=== PATIENT | female | born 1995 ===

== ENCOUNTER 2018-03-25 17:03 | Emergency (ER) | payer MEDICAID, OTHER ==
[2018-03-25 17:12] VITALS: O2SAT 99; BMI 41.1
--- NOTE | 2018-03-25 17:30 | ED PDOC ---
Arrival/HPI - General Chief Complaint: Weakness/Neurological Deficit Time Seen by Provider: 03/25/18 17:23 - History of Present Illness Narrative History of Present Illness (Text): 22 y/o F c no PMHx p/w hearing loss x 6 days and nausea after intercourse x 1 week. Patient states can not hear from R ear but denies fever, swelling, pain, or discharge. She notes that she has been digging in the ear to clean it herself and caused pain. She also notes nausea after intercourse but denies vaginal discharge, pelvic or abdominal pain, vomiting. Sexually active with 1 male partner for 1 week. Past Medical History - Infectious Disease Hx of Infectious Diseases: None - Psychiatric Hx Substance Use: Yes (marijuana) Family/Social History Family/Social History: No Known Family HX Smoking Status: Current Some Days Smoker Hx Alcohol Use: Yes Frequency of alcohol use: Socially Hx Substance Use: Yes (marijuana) Allergies/Home Meds Allergies/Adverse Reactions: Allergies amoxicillin Allergy (Verified 03/25/18 17:20) ANAPHYLAXIS FISH Allergy (Verified 03/25/18 17:20) ANAPHYLAXIS Fish Containing Products Allergy (Verified 03/25/18 17:20) ANAPHYLAXIS penicillin G Allergy (Verified 03/25/18 17:20) ANAPHYLAXIS Review of Systems - Physician Review All systems were reviewed & negative as marked: Yes - Review of Systems Constitutional: absent: Fevers Respiratory: absent: SOB Physical Exam - Physical Exam Narrative Physical Exam (Text): Gen: NAD Head: NC Eyes: PERRL ENT: R Tm with cerumen impaction Neck: Supple CV: Regular rate Lungs: CTA b/l Abd: Soft, NT Back: No CVA tenderness Skin: No rash Extremities: No swelling Neuro: Alert, no focal deficit Vital Signs Temp Pulse Resp BP Pulse Ox 03/25/18 17:12 98.4 F 77 18 130/88 99 Medical Decision Making ED Course and Treatment: Cerumen removed with light irrigation with resolution of symptoms. On re- examination, TM had been perforated, likely due to patient's inflicted trauma when attempting to clean at home. UA checked for UTI, , and GC/Chlamydia. Will treat with Azithromycin 2g due to reported allergy. Dr. Roque agrees with cipro drops and follow up in ENT office tomorrow. - Lab Interpretations Lab Results: Lab Results 03/25/18 17:42: Urine Color Yellow, Urine Appearance Clear, Urine pH 6.0, Ur Specific [place] 1.025, Urine Protein Trace H, Urine Glucose (UA) Negative, Urine Ketones Trace H, Urine Blood Negative, Urine Nitrate Negative, Urine Bilirubin Negative, Urine Urobilinogen 0.2, Ur Leukocyte Esterase Negative, Urine RBC Negative, Urine WBC 2 - 5, Ur Epithelial Cells 4 - 5, Calcium Oxalate Crystal Mod, Urine Bacteria Few, Urine HCG, Qual Negative - Medication Orders Current Medication Orders: Discontinued Medications Ciprofloxacin (Ciloxan 0.3% Ophth Soln) 1 drop AD STAT STA Stop: 03/25/18 17:58 Disposition/Present on Arrival - Present on Arrival Any Indicators Present on Arrival: No History of DVT/PE: No History of Uncontrolled Diabetes: No Urinary Catheter: No History of Decub. Ulcer: No History Surgical Site Infection Following: None - Disposition Have Diagnosis and Disposition been Completed?: Yes Diagnosis: Cerumen impaction, Rupture of tympanic membrane Disposition Time: 18:54 Patient Plan: Discharge Patient Problems: Current Active Problems Problem Status Onset Cerumen impaction Acute Rupture of tympanic membrane Acute Condition: STABLE Discharge Instructions (ExitCare): Ear Wax Impaction, Ruptured Eardrum (DC) Prescriptions: Ciprofloxacin/Hydrocortisone [Cipro Hc Otic Suspension] 1 drop AD Q12H #10 ml Referrals: Paulo Burnham DO [Staff Provider] - Follow up with primary Forms: [employer] ([place])
[2018-03-25] MEDS ORDERED: Ciprofloxacin 0.3% OPTH SOLN AD STA (17:57)
[2018-03-25 18:36] LABS: URINE BILIRUBIN NEGATIVE (NEGATIVE); URINE BLOOD NEGATIVE (NEGATIVE); URINE GLUCOSE (UA) NEGATIVE (NEGATIVE); URINE LEUKOCYTE ESTERASE NEGATIVE Leu/uL (NEGATIVE); URINE PROTEIN TRACE mg/dL (<30 mg/dL); URINE UROBILINOGEN 0.2 E.U./dL (<1 E.U./dL)
[2018-03-25 18:38] LABS: URINE APPEARANCE CLEAR (CLEAR); URINE COLOR YELLOW (YELLOW)
[2018-03-25 18:39] LABS: URINE BACTERIA FEW (NEG); URINE CALCIUM OXALATE CRYSTALS MOD /hpf; URINE RBC NEGATIVE /hpf (0-2)
[2018-03-25 18:40] LABS: HCG,QUALITATIVE URINE NEGATIVE (NEGATIVE)
[2018-03-25 19:37] VITALS: BP 130/80; PULSE 70; RESP 19; TEMP 98
== END 2018-03-25 19:30 | disposition home or self-care (01) ==
LOC: ED 17:03
DX: H72.91 Unspecified perforation of tympanic membrane, right ear (principal); H61.21 Impacted cerumen, right ear; F17.200 Nicotine dependence, unspecified, uncomplicated

== ENCOUNTER 2018-05-02 15:42 | Emergency (ER) | payer MEDICAID ==
[2018-05-02 15:42] VITALS: BMI 41.1
== END 2018-05-02 17:05 | disposition left against medical advice (07) ==
LOC: ED 15:42
DX: Z02.89 Encounter for other administrative examinations (principal); R21 Rash and other nonspecific skin eruption

== ENCOUNTER 2018-07-21 15:35 | Emergency (ER) | payer OTHER, MEDICAID ==
[2018-07-21 15:35] VITALS: BMI 41.1
[2018-07-21 16:06] VITALS: RESP 18; TEMP 98.3; O2SAT 98
--- NOTE | 2018-07-21 16:10 | ED PDOC ---
Arrival/HPI - General Time Seen by Provider: 07/21/18 16:05 Historian: Patient - History of Present Illness Narrative History of Present Illness (Text): 07/21/18 16:05 23 y/o female, no significant pmh, penicillin allergy, c/o lt. foot x 3 hours. Pt. stated that shopping cart accidentally run over her 4th and 5th toe, has pain, able to move it, able to bear weight, had shoe and sock on, no numbness or tingling, no skin discoloration, no rash, no night sweat, no other medical or psychological complaints. Past Medical History - Provider Review Nursing Documentation Reviewed: Yes - Infectious Disease Hx of Infectious Diseases: None - Psychiatric Hx Substance Use: Yes (marijuana) Family/Social History - Physician Review Nursing Documentation Reviewed: Yes Family/Social History: Unknown Family HX Smoking Status: Current Some Days Smoker Hx Alcohol Use: Yes Hx Substance Use: Yes (marijuana) Allergies/Home Meds Allergies/Adverse Reactions: Allergies amoxicillin Allergy (Verified 03/25/18 17:20) ANAPHYLAXIS FISH Allergy (Verified 03/25/18 17:20) ANAPHYLAXIS Fish Containing Products Allergy (Verified 03/25/18 17:20) ANAPHYLAXIS penicillin G Allergy (Verified 03/25/18 17:20) ANAPHYLAXIS Review of Systems - Review of Systems Constitutional: absent: Fatigue, Fevers Eyes: absent: Vision Changes ENT: absent: Hearing Changes Respiratory: absent: SOB, Cough Cardiovascular: absent: Chest Pain Gastrointestinal: absent: Abdominal Pain, Nausea, Vomiting Musculoskeletal: Arthralgias. absent: Back Pain Skin: absent: Rash, Pruritis, Skin Lesions Neurological: absent: Headache, Dizziness Endocrine: absent: Diaphoresis Hemo/Lymphatic: absent: Adenopathy Psychiatric: absent: Anxiety, Depression, Suicidal Ideation Physical Exam Vital Signs Reviewed: Yes Vital Signs Temp Pulse Resp BP Pulse Ox 07/21/18 16:03 98.3 F 82 18 119/74 98 Temperature: Afebrile Blood Pressure: Normal Pulse: Regular Respiratory Rate: Normal Appearance: Positive for: Well-Appearing, Non-Toxic, Comfortable Pain Distress: Mild Mental Status: Positive for: Alert and Oriented X 3 - Systems Exam Head: Present: Atraumatic, Normocephalic Pupils: Present: PERRL Extroacular Muscles: Present: EOMI Conjunctiva: Present: Normal Mouth: Present: Moist Mucous Membranes Neck: Present: Normal Range of Motion Respiratory/Chest: Present: Clear to Auscultation, Good Air Exchange. No: Respiratory Distress, Accessory Muscle Use Cardiovascular: Present: Regular Rate and Rhythm, Normal S1, S2. No: Murmurs Abdomen: No: Tenderness, Distention, Peritoneal Signs Back: Present: Normal Inspection Upper Extremity: Present: Normal Inspection. No: Cyanosis, Edema Lower Extremity: Present: Normal Inspection, Other (Lt. foot: mild +ttp on the 4th and 5th toe region, skin intact, no laceration or abrasion, no nail injury and no subungal hematoma, FROM without limitation, sensation intact, motor 5/5, +DPPT pulses, no signs of compartment syndrome. ). No: Edema Neurological: Present: GCS=15, CN II-XII Intact, Speech Normal Skin: Present: Warm, Dry, Normal Color. No: Rashes Psychiatric: Present: Alert, Oriented x 3, Normal Insight, Normal Concentration Medical Decision Making ED Course and Treatment: 07/21/18 16:13 -urine hcg -xray -tylenol 07/21/18 17:59 -Urine hcg is negative -Lt. foot xray show No demonstrated fracture or dislocation. -Pt. feels well, refused crutches/cane -Discharge home with naproxen, follow up with your own pmd and pulverizer feeder within 2 days, return to the ER for any new or worsening signs or symptoms. - RAD Interpretation Radiology Orders: 07/21/18 16:10 FOOT LEFT 3 VIEWS ROUTINE [RAD] Stat PROCEDURE: Left Foot Radiographs. HISTORY: lt. foot 4th and 5th toe injury, c/o pain COMPARISON: None. FINDINGS: BONES: No acute fracture. JOINTS: Normal. SOFT TISSUES: Normal. OTHER FINDINGS: None. IMPRESSION: No demonstrated fracture or dislocation. Teletype Mechanic: Radiologist - Medication Orders Current Medication Orders: Discontinued Medications Acetaminophen (Tylenol 325mg Tab) 650 mg PO STAT STA Stop: 07/21/18 16:11 Last Admin: 07/21/18 16:28 Dose: 650 mg MAR Pain/Vitals Document 07/21/18 16:28 GMD (Rec: 07/21/18 16:29 GMD [id number]) Pain Reassessment Is This A Pain ReAssessment? No Presence of Pain Presence of Pain Yes - PA / PROFESSOR OF MANAGEMENT / Resident Statement MD/DO has reviewed & agrees with the documentation as recorded. Disposition/Present on Arrival - Present on Arrival Any Indicators Present on Arrival: No History of DVT/PE: No History of Uncontrolled Diabetes: No Urinary Catheter: No History of Decub. Ulcer: No History Surgical Site Infection Following: None - Disposition Have Diagnosis and Disposition been Completed?: Yes Diagnosis: Toe injury, Toe pain Disposition: HOME/ ROUTINE Disposition Time: 16:14 Patient Plan: Discharge Patient Problems: Current Active Problems Problem Status Onset Toe injury Acute Condition: GOOD Additional Instructions: -Discharge home with naproxen, follow up with your own pmd and pulverizer feeder within 2 days, return to the ER for any new or worsening signs or symptoms. Prescriptions: Naproxen 500 mg PO BID PRN #20 tablet PRN Reason: Other Referrals: PCP,NO [Primary Care Provider] - Follow up with primary James Larkin DPM [Staff Provider] - Follow up with primary Forms: WORK NOTE
--- NOTE | 2018-07-21 17:48 | RAD ---
Date of service: 07/21/2018 PROCEDURE: Left Foot Radiographs. HISTORY: lt. foot 4th and 5th toe injury, c/o pain COMPARISON: None. FINDINGS: BONES: No acute fracture. JOINTS: Normal. SOFT TISSUES: Normal. OTHER FINDINGS: None. IMPRESSION: No demonstrated fracture or dislocation.
[2018-07-21 18:24] VITALS: BP 124/76; PULSE 76
== END 2018-07-21 18:24 | disposition home or self-care (01) ==
LOC: ED 15:35
DX: M79.675 Pain in left toe(s) (principal); S99.922A Unspecified injury of left foot, initial encounter; W22.8XXA Striking against or struck by other objects, initial encounter

== ENCOUNTER 2018-09-15 15:07 | Inpatient (IN) | payer MEDICAID, OTHER ==
[2018-09-15 15:47] VITALS: BMI 42.0
--- NOTE | 2018-09-15 16:09 | ED PDOC ---
Arrival/HPI - General Historian: Patient - History of Present Illness Narrative History of Present Illness (Text): 09/15/18 16:06 23 year old female, with past medical history of chronic depression, presents to the Emergency Department for psychiatric evaluation of depressed mood since past few weeks. Patient states feeling depressed secondary to job and family issues. Patient denies any somatic complaints. Patient denies any suicidal ideation or homicidal ideation. Patient denies any visual or auditory hallucinations. Patient denies any alcohol or drug abuse. Time/Duration: > week Symptom Onset: Gradual Symptom Course: Unchanged Activities at Onset: Light Context: Home <Darrion Escobar - Last Filed: 09/15/18 18:46> <Beverley Gomez - Last Filed: 09/19/18 17:04> - General Chief Complaint: Psychiatric Evaluation Time Seen by Provider: 09/15/18 15:33 Past Medical History - Provider Review Nursing Documentation Reviewed: Yes - Infectious Disease Hx of Infectious Diseases: None - Psychiatric Hx Substance Use: Yes (marijuana) - Anesthesia Hx Anesthesia: No <Darrion Escobar - Last Filed: 09/15/18 18:46> Family/Social History - Physician Review Nursing Documentation Reviewed: Yes Family/Social History: No Known Family HX Smoking Status: Marijuana Hx Alcohol Use: Yes Frequency of alcohol use: Socially Hx Substance Use: Yes (marijuana) <Darrion Escobar - Last Filed: 09/15/18 18:46> Allergies/Home Meds <Darrion Escobar - Last Filed: 09/15/18 18:46> <Beverley Gomez - Last Filed: 09/19/18 17:04> Allergies/Adverse Reactions: Allergies amoxicillin Allergy (Verified 09/15/18 21:07) ANAPHYLAXIS FISH Allergy (Verified 09/15/18 21:07) ANAPHYLAXIS Fish Containing Products Allergy (Verified 09/15/18 21:07) ANAPHYLAXIS penicillin G Allergy (Verified 09/15/18 21:07) ANAPHYLAXIS Home Medications: Home Meds Medication Instructions Recorded Confirmed RX: No Known Home Med 09/15/18 09/15/18 Review of Systems - Physician Review All systems were reviewed & negative as marked: Yes - Review of Systems Constitutional: absent: Fatigue, Fevers Respiratory: absent: SOB, Cough Cardiovascular: absent: Chest Pain Gastrointestinal: absent: Abdominal Pain, Diarrhea, Nausea, Vomiting Genitourinary Female: absent: Hematuria Musculoskeletal: absent: Back Pain, Neck Pain Skin: absent: Rash Neurological: absent: Headache, Dizziness Psychiatric: Depression. absent: Anxiety, Suicidal Ideation <Darrion Escobar - Last Filed: 09/15/18 18:46> Physical Exam Vital Signs Reviewed: Yes Vital Signs Temp Pulse Resp BP Pulse Ox 09/15/18 15:38 98.2 F 94 H 17 108/72 97 Temperature: Afebrile Blood Pressure: Normal Pulse: Regular Respiratory Rate: Normal Appearance: Positive for: Well-Appearing, Non-Toxic, Comfortable Pain Distress: None Mental Status: Positive for: Alert and Oriented X 3 - Systems Exam Head: Present: Atraumatic, Normocephalic Pupils: Present: PERRL Extroacular Muscles: Present: EOMI Conjunctiva: Present: Normal Mouth: Present: Moist Mucous Membranes Neck: Present: Normal Range of Motion Respiratory/Chest: Present: Clear to Auscultation, Good Air Exchange. No: Respiratory Distress, Accessory Muscle Use Cardiovascular: Present: Regular Rate and Rhythm, Normal S1, S2. No: Murmurs Abdomen: No: Tenderness, Distention, Peritoneal Signs Back: Present: Normal Inspection Upper Extremity: Present: Normal Inspection. No: Cyanosis, Edema Lower Extremity: Present: Normal Inspection. No: Edema Neurological: Present: GCS=15, CN II-XII Intact, Speech Normal, Motor Func Grossly Intact, Gait Normal, Memory Normal Skin: Present: Warm, Dry, Normal Color. No: Rashes Lymphatic: No: Cervical Adenopathy Psychiatric: Present: Alert, Oriented x 3, Normal Insight, Normal Concentration, Depressed Mood. No: Suicidal Ideation, Homicidal Ideation <Darrion Escobar - Last Filed: 09/15/18 18:46> Vital Signs Temp Pulse Resp BP Pulse Ox 09/15/18 17:00 98.3 F 75 16 122/75 98 09/15/18 15:38 98.2 F 94 H 17 108/72 97 <Beverley Gomez - Last Filed: 09/19/18 17:04> Medical Decision Making ED Course and Treatment: 09/15/18 16:11 Impression: 23 year old female presents to the Emergency Department for psychiatric evaluation of depression. Plan: -- Labs -- Chest X-ray -- EKG -- PES -- Reassess and disposition 09/15/18 17:19 -Urine hcg is negative -Labs show no acute findings -UA show mild UTI, macrobid ordered -UDS is positive for cannabinoid -Alcohol within normal limit. -salicylate/acetaminophen within normal limit -Chest xray show No active pulmonary disease. -Pt. is medically clear and stable for the psychiatric evaluation. -Pending PES for evaluation 09/15/18 18:46 -Pt. evaluated by the YISSEL Iniguez, evaluated the patient and discussed with the psychiatrist, recommend admission and the patient agreed. -All labs and radiology results discussed with the patient, she awared. -Pt. will be admitted under Dr. Amanda Murillo, for bipolar disorder as per YISSEL Iniguez. - RAD Interpretation Radiology Orders: 09/15/18 15:42 CHEST PORTABLE [RAD] Stat 09/15/2018 HISTORY: medical clearance COMPARISON: No prior. FINDINGS: LUNGS: The lungs are well inflated and clear. PLEURA: No pleural effusions or pneumothorax. CARDIOVASCULAR: The heart is normal in size. No aortic atherosclerotic calcification present. OSSEOUS STRUCTURES: Within normal limits for the patient's age. VISUALIZED UPPER ABDOMEN: Normal. OTHER FINDINGS: None. IMPRESSION: No active pulmonary disease. Awning Craftsperson: Radiologist <Darrion Escobar - Last Filed: 09/15/18 18:46> - Lab Interpretations Microbiology Results: Microbiology Results 09/15/18 16:10 Urine,Clean Catch Urine Culture - Final No Growth (<1,000 CFU/ML) Lab Results: 09/15/18 15:42 09/15/18 17:04 Lab Results 09/15/18 17:04: Salicylates < 1 L, Acetaminophen < 10.0 L 09/15/18 17:04: Sodium 141, Potassium 4.5, Chloride 106, Carbon Dioxide 28, Anion Gap 12, BUN 15, Creatinine 0.8, Est GFR ( Amer) > 60, Est GFR (Non- Af Amer) > 60, Random Glucose 92, Calcium 9.1, Total Bilirubin 0.4, AST 32, ALT 33, Alkaline Phosphatase 96, Total Protein 7.4, Albumin 4.1, Globulin 3.3, Albumin/Globulin Ratio 1.2 09/15/18 17:00: Alcohol, Quantitative < 10 09/15/18 16:25: Urine Osmolality 976, Urine Opiates Screen Negative, Urine Methadone Screen Negative, Ur Barbiturates Screen Negative, Ur Phencyclidine Scrn Negative, Ur Amphetamines Screen Negative, U Benzodiazepines Scrn Negative, U Oth Cocaine Metabols Negative, U Cannabinoids Screen Positive H 09/15/18 16:25: Urine Color Yellow, Urine Appearance Clear, Urine pH 6.0, Ur Specific [place] >= 1.030, Urine Protein Negative, Urine Glucose (UA) Negative, Urine Ketones Trace H, Urine Blood Negative, Urine Nitrate Negative, Urine Bilirubin Negative, Urine Urobilinogen 0.2, Ur Leukocyte Esterase Small H, Urine RBC Negative, Urine WBC 1 - 3, Ur Epithelial Cells 1 - 3, Urine Bacteria Trace 09/15/18 15:42: WBC 8.2, RBC 4.70, Hgb 13.9, Hct 41.6, MCV 88.5, MCH 29.6, MCHC 33.4, RDW 13.4, Plt Count 250, MPV 10.6, Gran % 44.3 L, Lymph % (Auto) 46.9 H, [place] % (Auto) 6.7 H, Eos % (Auto) 1.7, Baso % (Auto) 0.4, Gran # 3.62, Lymph # (Auto) 3.8 H, [place] # (Auto) 0.6, Eos # (Auto) 0.1, Baso # (Auto) 0.03 - RAD Interpretation Radiology Orders: 09/15/18 15:42 CHEST PORTABLE [RAD] Stat - Medication Orders Current Medication Orders: Acetaminophen (Tylenol 325mg Tab) 650 mg PO Q6H PRN PRN Reason: Pain, moderate (4-7) Last Admin: 09/18/18 10:45 Dose: 650 mg MAR Pain/Vitals Document 09/18/18 10:45 AK (Rec: 09/18/18 10:46 [facility] [id number]) Pain Reassessment Is This A Pain ReAssessment? Yes Al Hydrox/Mg Hydrox/Simethicone (Maalox Plus 30 Ml) 30 ml PO DAILY PRN PRN Reason: Upset Stomach Lorazepam (Ativan) 2 mg PO Q6 PRN; Protocol PRN Reason: Agitation Last Admin: 09/18/18 21:18 Dose: 2 mg Behavioural Document 09/18/18 21:18 DCP (Rec: 09/18/18 21:19 DCP [id number]) Maintenance Maintenance Dose No Nonmedicinal Nonmedicinal Interventions Therapeutic Communication Behavior Behavior for Medication: Insomnia Re-Assess: Reassess Psych Meds Document 09/18/18 22:18 DCP (Rec: 09/18/18 22:59 DCP [facility] [email or web address] Reassess Psych Med Effective Lorazepam (Ativan) 2 mg IM Q6H PRN; Protocol PRN Reason: Agitation Magnesium Hydroxide (Milk Of Magnesia) 30 ml PO DAILY PRN PRN Reason: Constipation Nicotine (Nicoderm Cq) 1 patch TD DAILY VANESSA Last Admin: 09/19/18 09:05 Dose: 1 patch MAR Transdermal Patch Site Document 09/19/18 09:05 DL (Rec: 09/19/18 09:05 DL [id number]) Transdermal Patch Site Transdermal Patch Site Right Outer Upper Arm Risperidone (Risperdal Tab) 1 mg PO HS VANESSA; Protocol Last Admin: 09/18/18 21:19 Dose: 1 mg Behavioural Document 09/18/18 21:19 DCP (Rec: 09/18/18 21:19 [email or web address] Maintenance Maintenance Dose Yes Re-Assess: Reassess Psych Meds Document 09/18/18 22:19 DCP (Rec: 09/18/18 23:00 [email or web address] Reassess Psych Med Effective Risperidone (Risperdal Tab) 0.5 mg PO DAILY VANESSA; Protocol Last Admin: 09/19/18 09:05 Dose: 0.5 mg Behavioural Document 09/19/18 09:05 DL (Rec: 09/19/18 09:05 DL [id number]) Maintenance Maintenance Dose Yes Re-Assess: Reassess Psych Meds Document 09/19/18 10:05 ID (Rec: 09/19/18 11:57 ID [id number]) Reassess Psych Med Effective Zaleplon (Sonata) 5 mg PO HS PRN PRN Reason: Insomnia Last Admin: 09/18/18 21:19 Dose: 5 mg Ziprasidone (Geodon Cap) 20 mg PO Q6 PRN; Protocol PRN Reason: SEVERE AGITATION Ziprasidone (Geodon Inj) 20 mg IM Q6 PRN; Protocol PRN Reason: SEVERE AGITATION Discontinued Medications Aripiprazole (Abilify) 2.5 mg PO AMHS VANESSA Last Admin: 09/17/18 09:34 Dose: 2.5 mg Behavioural Document 09/17/18 09:34 CV (Rec: 09/17/18 09:35 CV [id number]) Maintenance Maintenance Dose Yes Nonmedicinal Nonmedicinal Interventions Therapeutic Communication Re-Assess: Reassess Psych Meds Document 09/17/18 10:34 CV (Rec: 09/17/18 11:06 CV [id number]) Reassess Psych Med Effective Nitrofurantoin Macrocrystals (Macrobid) 100 mg PO STAT STA; Protocol Stop: 09/15/18 17:18 Last Admin: 09/15/18 19:38 Dose: 100 mg Risperidone (Risperdal Tab) 0.5 mg PO AMHS VANESSA; Protocol Last Admin: 09/18/18 09:30 Dose: 0.5 mg <eBverley Gomez - Last Filed: 09/19/18 17:04> - PA / [employer] / Resident Statement / has reviewed & agrees with the documentation as recorded. - Scribe Statement The provider has reviewed the documentation as recorded by the Scribe Holley Stewart. All medical record entries made by the Neelaibe were at my direction and personally dictated by me. I have reviewed the chart and agree that the record accurately reflects my personal performance of the history, physical exam, medical decision making, and the department course for this patient. I have also personally directed, reviewed, and agree with the discharge instructions and disposition. <Darrion Escobar - Last Filed: 09/15/18 18:46> - PA / [employer] / Resident Statement PUMA has reviewed & agrees with the documentation as recorded. <Beverley Gomez - Last Filed: 09/19/18 17:04> Disposition/Present on Arrival - Present on Arrival Any Indicators Present on Arrival: No History of DVT/PE: No History of Uncontrolled Diabetes: No Urinary Catheter: No History of Decub. Ulcer: No History Surgical Site Infection Following: None - Disposition Have Diagnosis and Disposition been Completed?: Yes Disposition Time: 17:20 Patient Plan: Admission <Darrion Escobar - Last Filed: 09/15/18 18:46> <Beverley Gomez - Last Filed: 09/19/18 17:04> - Disposition Diagnosis: Drug abuse, UTI (urinary tract infection), Bipolar disorder Disposition: HOSPITALIZED Patient Problems: Current Active Problems Problem Status Onset Bipolar disorder Acute Drug abuse Acute UTI (urinary tract infection) Acute Condition: STABLE
[2018-09-15 16:50] LABS: URINE APPEARANCE CLEAR (CLEAR); URINE BILIRUBIN NEGATIVE (NEGATIVE); URINE BLOOD NEGATIVE (NEGATIVE); URINE COLOR YELLOW (YELLOW); URINE GLUCOSE (UA) NEGATIVE (NEGATIVE); URINE LEUKOCYTE ESTERASE SMALL Leu/uL (NEGATIVE); URINE PROTEIN NEGATIVE mg/dL (<30 mg/dL); URINE UROBILINOGEN 0.2 E.U./dL (<1 E.U./dL)
[2018-09-15 16:57] LABS: URINE BACTERIA TRACE (NEG); URINE RBC NEGATIVE /hpf (0-2)
[2018-09-15 17:04] LABS: BASO # 0.03 K/mm3 (0.0-2.0); BASO % 0.4 % (0.0-3.0); EOS # 0.1 (0.0-0.7); EOS % 1.7 % (1.5-5.0); GRAN # 3.62 (1.4-6.5); GRAN % 44.3 % (50.0-68.0); HEMOGLOBIN 13.9 g/dL (12.0-16.0); LYMPH # 3.8 (1.2-3.4); LYMPH % 46.9 % (22.0-35.0); MEAN CELL VOLUME 88.5 fl (80.0-105.0); MEAN CORPUSCULAR HEMOGLOBIN 29.6 pg (25.0-35.0); MEAN CORPUSCULAR HGB CONC 33.4 g/dl (31.0-37.0); MEAN PLATELET VOLUME 10.6 fl (7.0-11.0); MONO # 0.6 (0.1-0.6); MONO % 6.7 % (1.0-6.0); RBC 4.7 10^6/uL (3.5-6.1); RED CELL DISTRIBUTION WIDTH 13.4 % (11.5-14.5); WHITE BLOOD COUNT 8.2 10^3/ul (4.5-11.0)
[2018-09-15 17:13] LABS: ALB/GLOB RATIO 1.2 (1.1-1.8); ALBUMIN 4.1 g/dL (3.0-4.8); ALT/SGPT 33 U/L (7-56); AST/SGOT 32 U/L (14-36); BLOOD UREA NITROGEN 15 mg/dL (7-21); CALCIUM 9.1 mg/dL (8.4-10.5); GFR NON-AFRICAN AMERICAN > 60
[2018-09-15 17:14] LABS: ACETAMINOPHEN < 10.0 ug/ml (10.0-20.0); SALICYLATE < 1 mg/dL (2.0-20.0)
[2018-09-15 17:14] LABS: BARBITURATES, UR NEGATIVE (NEGATIVE); BENZODIAZEPINES, UR NEGATIVE (NEGATIVE); OPIATES, UR NEGATIVE (NEGATIVE); PHENCYCLIDINE, UR NEGATIVE (NEGATIVE)
--- NOTE | 2018-09-15 17:16 | RAD ---
Date of service: 09/15/2018 HISTORY: medical clearance COMPARISON: No prior. FINDINGS: LUNGS: The lungs are well inflated and clear. PLEURA: No pleural effusions or pneumothorax. CARDIOVASCULAR: The heart is normal in size. No aortic atherosclerotic calcification present. OSSEOUS STRUCTURES: Within normal limits for the patient's age. VISUALIZED UPPER ABDOMEN: Normal. OTHER FINDINGS: None. IMPRESSION: No active pulmonary disease.
[2018-09-15 18:10] LABS: OSMOLALITY,URINE 976 mosm/kg (300-1000)
[2018-09-15 20:06] VITALS: O2SAT 99
[2018-09-15] MEDS ORDERED: Magnesium Hydroxide Susp 30 ml UD PO PRN (20:50)
[2018-09-15] MEDS ORDERED: Alum-Mag Hydrox-Simethicone Susp (30 mL) PO PRN (20:50)
--- NOTE | 2018-09-16 00:19 | PCM.BM ---
<Jorgito Graham - Last Filed: 09/16/18 00:15> Treatment Plan Problems - Problems identified on initial assessmt Agitated /agressive behavior Date Initiated: 09/16/18 Time Initiated: 00:17 Assessment reference: NA Status: Active Ineffective impulse control Date Initiated: 09/16/18 Time Initiated: 00:18 Assessment reference: NA Status: Active Medication non adherence Date Initiated: 09/16/18 Time Initiated: 00:18 Assessment reference: NA Status: Active Treatment assets and liabiliti Patient Assests: cooperative, educated, insightful, motivated, ADL independent, physically healthy Patient Liabilities: financial problems, substance abuse - Milieu Protocol Maintain good personal hygiene: daily Encourage regular showers, daily Remind patient to perform daily oral care, daily Assist patient to perform ADL's Conduct patient checks and document Observation sheet: Q15 minutes Maintain personal safety: every shift Educate patient to report safety concerns to staff, every shift Monitor environment for contraband/sharps Medication safety: Monitor for expected outcome, potential side effects: every shift, Assess barriers to learning: every shift, Assess readiness for medication education: every shift Discharge/Continuing Care - Education Needs Education Needs: Patient Medication, Patient Diagnosis/Disease Process, Patient Coping Skills, Patient Anger Management skills, Patient Health Practices/Safety, Patient Aftercare Safety Plan - Discharge Discharge Criteria: Tolerates medication w/o severe side effects, Free of Suicidal thoughts, Free of agitation, Reduction of target symptoms Discharge to:: Home <Amanda Bowman - Last Filed: 09/16/18 09:15> - Diagnosis (1) Bipolar disorder Status: Acute Interventions: 09/16/18 09:15 Psychoeducation Psychopharmacology/adjustment of medications as needed/ monitoring possible side effects Monitor blood level of mood stabilizers Evaluate pt on daily basis Compliance with medications and follow up appointments Suicide and homicide risk assessment and prevention, coping strategies, safety plan Relapse prevention Reduction of symptoms Improve functional status Family involvement As outpatient: cognitive behavioral therapy <Dunia Downs - Last Filed: 09/18/18 15:23> Family Contact Family involvement: Family/SO is involved Family contact: Patient agrees to contact Family contact name: Franci Banks(mother) Family contacted how many times per week?: 2
--- NOTE | 2018-09-16 07:47 | CARD ---
APPROVED REPORT Date of service: 09/15/2018 EKG Measurement Heart [id number] <Conclusion> Normal sinus rhythm 1st degree AVB Q in lll Mild NSSTW changes
[2018-09-16 07:54] LABS: GLUCOSE,FASTING 98 mg/dL (65-110); HDL CHOLESTEROL 47 mg/dL (29-60)
[2018-09-16 08:05] LABS: LDL CHOLESTEROL 140 mg/dL (0-129)
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
--- NOTE | 2018-09-18 16:10 | PCM.PYCHPN ---
Psychiatric Progress Note - Psychiatric Progress Note Patient seen today, length of contact: 30 minutes Patient Chief Complaint: "I got to know that my boyfriend was cheating on me" Problems Identified/Issues Discussed: Suicide/ homicide prevention, past psychiatric h/o, current psychiatric symptoms, medical problems, risk/benefits and alternatives of medications, medications compliance, coping strategies, substance abuse h/o, relapse prevention, importance of follow up with psychiatrist and therapist, discharge plan. Medical Problems: patient had a questionable urinary tract infection, dyslipidemia, patient was seen by medical team, consult appreciated, no intervention needed at this time. Diagnostic Results: 09/15/18 15:42 09/15/18 17:04 Lab Results 09/16/18 07:20: RPR Nonreactive 09/16/18 07:20: TSH 3rd Generation 2.36 09/16/18 07:20: Fasting Glucose 98, Triglycerides 88, Cholesterol 202 H, LDL Cholesterol Direct 140 H, HDL Cholesterol 47 09/15/18 17:04: Salicylates < 1 L, Acetaminophen < 10.0 L 09/15/18 17:04: Sodium 141, Potassium 4.5, Chloride 106, Carbon Dioxide 28, Anion Gap 12, BUN 15, Creatinine 0.8, Est GFR ( Amer) > 60, Est GFR (Non- Af Amer) > 60, Random Glucose 92, Calcium 9.1, Total Bilirubin 0.4, AST 32, ALT 33, Alkaline Phosphatase 96, Total Protein 7.4, Albumin 4.1, Globulin 3.3, Albumin/Globulin Ratio 1.2 09/15/18 17:00: Alcohol, Quantitative < 10 09/15/18 16:25: Urine Osmolality 976, Urine Opiates Screen Negative, Urine Methadone Screen Negative, Ur Barbiturates Screen Negative, Ur Phencyclidine Scrn Negative, Ur Amphetamines Screen Negative, U Benzodiazepines Scrn Negative, U Oth Cocaine Metabols Negative, U Cannabinoids Screen Positive H 09/15/18 16:25: Urine Color Yellow, Urine Appearance Clear, Urine pH 6.0, Ur Specific [place] >= 1.030, Urine Protein Negative, Urine Glucose (UA) Negative, Urine Ketones Trace H, Urine Blood Negative, Urine Nitrate Negative, Urine Bilirubin Negative, Urine Urobilinogen 0.2, Ur Leukocyte Esterase Small H, Urine RBC Negative, Urine WBC 1 - 3, Ur Epithelial Cells 1 - 3, Urine Bacteria Trace 09/15/18 15:42: WBC 8.2, RBC 4.70, Hgb 13.9, Hct 41.6, MCV 88.5, MCH 29.6, MCHC 33.4, RDW 13.4, Plt Count 250, MPV 10.6, Gran % 44.3 L, Lymph % (Auto) 46.9 H, [place] % (Auto) 6.7 H, Eos % (Auto) 1.7, Baso % (Auto) 0.4, Gran # 3.62, Lymph # (Auto) 3.8 H, [place] # (Auto) 0.6, Eos # (Auto) 0.1, Baso # (Auto) 0.03 Vital Signs Temp Pulse Pulse Resp BP Pulse Ox 09/17/18 07:35 98.0 F 75 20 110/76 09/16/18 16:00 91 H 119/77 09/16/18 07:02 98.0 F 74 20 96/69 L 09/15/18 22:25 92 H 18 09/15/18 20:04 18 99 09/15/18 17:00 98.3 F 75 16 122/75 98 09/15/18 15:38 98.2 F 94 H 17 108/72 97 DSM 5 Symptoms Update: shortly patient is 23 year old female, with past history of bipolar spectrum disorder, one suicidal attempt about the year ago and prolonged hospitalization in [place] after, patient recently lost her job, patient was brought to the emergency room by her family and boyfriend due to agitation, aggressive outbursts, mood swings, irritability, inability to function and sleep. As per report patient was aggressive towards her younger sister and almost harm her. Patient requires further evaluation and stabilization and medication titration. Patient failed outpatient setting, needs further evaluation and stabilization. Patient was seen today at the treatment team meeting, earlier pt was observed, crying hysterically and cursing on the phone. pt said that she got to know that her boyfriend was cheating on her, pt said that "if I would be not in the unit and with no medications, probably outcome would be not that great", pt said that she is proud of herself that she was able to control her impulses and was not aggressive and no PRN was needed. pt was educated about risperdal, pt is willing to increase the hs dose to 1mg . as per staff pleasant and corporative, impulses are still unpredictable. So far patient tolerates medications well, no side effects observed or reported, aims 0, no EPS. Impression: DSM 5 Diagnosis: r/o bipolar disorder, type I, most recent episode mixed, with psychosis ppolysubstance abuse and dependence in remission "I used to experiment with all drugs under the sun, molley, ecstasy, hallucinogens cannabis abuse Medication Change: Yes (Risperdal increased) Medical Record Reviewed: Yes Consults ordered or reviewed: medical consult appreciated please see notes for more detailed information Mental Status Examination - Cognitive Function Orientation: Person, Place, Situation, Time Memory: Intact Attention: Poor Concentration: Poor Association: Loose Fund of Knowledge: Poor - Mood Mood: Depressed, Other (irritable) - Affect Affect: Other (expanded) - Formal Thought Process Formal Thought Process: No Impairment - Suicidal Ideation Suicidal Ideation: No - Homicidal Ideation Homicidal Ideation: No Goal/Treatment Plan - Goal/Treatment Plan Need for Continued Stay: Remain at risks for inpatient hospitalization, Severe depression anxiety, Discharge may exacerbated symptoms, Severe functional impairment Progress Toward Problem(s) and Goals/Treatment Plan: Milieu/structure/supportive therapy Medical consult wwill be called for urinary tract infection SW consultation for discharge plan and social issues Med management Abilify discontinued Risperdal 0.5 mg at the morning and 1 mg at the nighttime, for mood stabilization, impulse control, paranoia sonata 5mg po hs for insomnia Family involvement Follow up on labs Will monitor closely Pt was educated about risk/benefits and alternatives of medications, coping strategies (safety plan, suicide prevention), relapse prevention, importance of follow up with psychiatrist and therapist, stay away from drugs/alcohol/smoking Estimated Date of D/C: 09/21/18
--- NOTE | 2018-09-19 10:37 | PCM.PYCHPN ---
Psychiatric Progress Note - Psychiatric Progress Note Patient seen today, length of contact: 30 minutes Problems Identified/Issues Discussed: I reviewed assessment and recent notes. I met with patient at bedside. She is fairly groomed and well oriented to circumstances. Presently she reports "f eeling fine" and denies any new issues. Appears to be in fair control during my visit however staff reports indicate she has been labile, emotional with periods of anger/outbursts. Patient's thought process is coherent and affect is constricted with moderate reactivity and mild anxiety. Denies perceptual disturbance. Patient has been compliant with medications and denies any new side effects, p ain or discomfort. There were no behavioral issues overnight, patient's behavior is still unpredictable though insight is improving. Diagnostic Results: r/o bipolar disorder, type I, most recent episode mixed, with psychosis ppolysubstance abuse and dependence in remission "I used to experiment with all drugs under the sun, ying, ecstasy, hallucinogens cannabis abuse Medication Change: Yes (Risperdal increased) Medical Record Reviewed: Yes Mental Status Examination - Cognitive Function Orientation: Person, Place, Situation, Time Memory: Intact Attention: Poor Concentration: Poor Association: Loose Fund of Knowledge: Poor - Mood Mood: Depressed, Other (irritable) - Affect Affect: Other (expanded) - Formal Thought Process Formal Thought Process: No Impairment - Suicidal Ideation Suicidal Ideation: No - Homicidal Ideation Homicidal Ideation: No Goal/Treatment Plan - Goal/Treatment Plan Need for Continued Stay: Remain at risks for inpatient hospitalization, Severe depression anxiety, Discharge may exacerbated symptoms, Severe functional impairment Progress Toward Problem(s) and Goals/Treatment Plan: * c/w current treatment and plan * Patient put in 48 hour notice on 09/18/18, have requested [facility] screener * No new weekend lab results thus far * Vitals reviewed and noted below: Selected Entries 09/18/18 07:11 Temperature 96.9 F L Pulse Rate 71 Respiratory 20 Rate Blood Pressure 100/61 Estimated Date of D/C: 09/21/18
[2018-09-20 07:20] VITALS: BP 107/67; PULSE 84; RESP 19; TEMP 97.8
== END 2018-09-20 15:15 | disposition left against medical advice (07) | DRG 885 ==
LOC: ED 15:07 → ERH 18:48 → PSYC 19:53
PROVIDERS: ADMIT Psychiatry & Neurology Psychiatry; ATTEND Psychiatry & Neurology Psychiatry
PROC: GZ3ZZZZ Medication Management (ICD-10-PCS; principal; 2018-09-16)
DX: F31.9 Bipolar disorder, unspecified (principal); N39.0 Urinary tract infection, site not specified; F12.10 Cannabis abuse, uncomplicated